=== PATIENT | male | born 1980 | race Two or more races ===

== ENCOUNTER 2025-04-19 05:48 | Emergency (ER) | payer OTHER ==
[~2025-04-19] VITALS: Ht 170.2 cm; Wt 111.1 kg
[2025-04-19 06:07] VITALS: BP 133/88; O2SAT 99
[2025-04-19] MEDS ORDERED: ONDANSETRON HCL 2 MG/ML VIAL IV ONE (07:30)
[2025-04-19] MEDS ORDERED: FAMOTIDINE/PF 20 MG/2 ML VIAL IV ONE (07:30)
[2025-04-19] MEDS ORDERED: 0.9 % SODIUM CHLORIDE 1,000 ML IV SCH (07:30)
[2025-04-19] MEDS ORDERED: KETOROLAC TROMETHAMINE 30 MG VIAL IV ONE (07:30)
[2025-04-19 08:32] LABS: BASO % 0.3 % (0.1-1.2); EOS # 0.00 (0.04-0.54); EOS % 0.0 % (0.7-7.0); LYMPH # 1.29 (1.18-3.74); LYMPH % 11.1 % (19.3-53.1); MEAN PLATELET VOLUME 11.30 fl (9.4-12.4); MONO # 0.73 (0.24-0.82); MONO % 6.3 % (4.7-12.5); NEUT # 9.53 (1.56-6.13); NEUT % 81.9 % (34.0-71.1); RED CELL DISTRIBUTION WIDTH 13.2 % (11.6-14.4)
[2025-04-19 08:37] LABS: URINE APPEARANCE Clear; URINE BILIRRUBIN Negative (NEGATIVE); URINE BLOOD Trace; URINE COLOR Dark Yellow; URINE GLUCOSE Negative (NEGATIVE); URINE KETONE 15 (NEGATIVE); URINE LEUKOCYTE Negative; URINE NITRATE Negative; URINE PROTEIN 30 (NEGATIVE); URINE UROBILINOGEN 1.0 E.U./dl
[2025-04-19 08:41] LABS: URINE BACTERIA 6.8 uL (0.0-1933); URINE EPITHELIAL CELLS 6.5 uL (0.0-38.8); URINE RBC 3.5 uL (0.0-20.8); URINE WBC 8.1 uL (0.0-23.2)
[2025-04-19 08:44] LABS: URINE CAST 0.70 uL (0.0-1.40)
[2025-04-19 08:55] LABS: COVID-19 AG NEGATIVE (NEGATIVE)
[2025-04-19 09:00] LABS: ALT/SGPT 60.0 U/L (12-78); AST/SGOT 21.0 U/L (15-37); BILIRUBIN TOTAL 0.89 mg/dL (0.3-1.2); BUN CREA RATIO 16.0 (7.0-25.0); CREATININE SERUM 1.03 mg/dL (0.70-1.30); GFR 79.2; GLOBULINA 4.4 G/DL (2.4-3.5); GLUCOSE FASTING 109.0 mg/dL (65-100); OSMOLALITY SERUM 279.0 MOSM/KG (275-295)
[2025-04-19] MEDS ORDERED: PROTONIX40 MG PO (11:38)
[2025-04-19] MEDS ORDERED: PEPCID AC20 MG PO (11:38)
[2025-04-19] MEDS ORDERED: INTESTINEX680 M1 PO (11:38)
== END 2025-04-19 13:26 | disposition home or self-care (01) ==
LOC: ER 05:49
PROVIDERS: Student in an Organized Health Care Education/Training Program
DX: K52.89 Other specified noninfective gastroenteritis and colitis (principal); K29.00 Acute gastritis without bleeding; I10 Essential (primary) hypertension; K76.0 Fatty (change of) liver, not elsewhere classified; Z20.822 Contact with and (suspected) exposure to COVID-19